=== PATIENT | male | born 1970 | race Caucasian/White ===

== ENCOUNTER 2017-03-25 10:22 | Emergency (ER) | payer MEDICAID ==
[~2017-03-25 10:22] MED LIST: ECO81 PO; GLU500 PO; MEV20 PO
[2017-03-25 11:35] LABS: BASOPHIL % 0.6 % (0-2); PLATELET COUNT 354 x10^3mcL (130-400)
[2017-03-25 11:49] LABS: CALCIUM 9.3 mg/dL (8.5-10.1); CARBON DIOXIDE 29.4 mmol/L (21-32); CHLORIDE SERUM 103 mmol/L (98-107); CREATININE SERUM 0.7 mg/dL (0.7-1.3); GFR1 > 60 mL/min; GLUCOSE SERUM 108 mg/dL (74-106); POTASSIUM SERUM 4.2 mmol/L (3.5-5.1); SODIUM SERUM 140 mmol/L (136-145)
[2017-03-25 11:54] LABS: ALBUMIN 3.7 g/dL (3.4-5.0); ALKALINE PHOSPHATASE 76 U/L (46-116); ALT/SGPT 48 U/L (16-63); AST/SGOT 25 U/L (15-37); BILIRUBIN TOTAL 0.36 mg/dL (0.20-1.00); TOTAL PROTEIN, SERUM 7.5 g/dL (6.4-8.2)
[2017-03-25 14:15] VITALS: BP 119/79
== END 2017-03-25 14:15 | disposition home or self-care (01) ==
LOC: ED 10:22
PROVIDERS: Emergency Medicine
DX: M25.511 Pain in right shoulder (principal); R07.89 Other chest pain; E11.9 Type 2 diabetes mellitus without complications; E78.00 Pure hypercholesterolemia, unspecified; Z79.84 Long term (current) use of oral hypoglycemic drugs
CPT/HCPCS: 36415

== ENCOUNTER 2017-07-08 18:45 | Emergency (ER) | payer MEDICAID ==
[~2017-07-08] VITALS: Ht 165.1 cm; Wt 78.0 kg
[2017-07-08 18:53] VITALS: Ht 165.1 cm; Wt 78.0 kg
[2017-07-08 20:11] LABS: BASOPHIL % 0.4 % (0-2); PLATELET COUNT 379 x10^3mcL (130-400)
[2017-07-08 20:23] LABS: CALCIUM 9.6 mg/dL (8.5-10.1); CARBON DIOXIDE 28.9 mmol/L (21-32); CHLORIDE SERUM 98 mmol/L (98-107); CREATININE SERUM 0.8 mg/dL (0.7-1.3); GFR1 > 60 mL/min; GLUCOSE SERUM 174 mg/dL (74-106); POTASSIUM SERUM 3.9 mmol/L (3.5-5.1); SODIUM SERUM 137 mmol/L (136-145)
[2017-07-08 22:01] VITALS: BP 125/69
== END 2017-07-08 22:00 | disposition home or self-care (01) ==
LOC: ED 18:45
PROVIDERS: Emergency Medicine Emergency Medical Services
DX: M54.5 Low back pain (principal); R10.84 Generalized abdominal pain; I10 Essential (primary) hypertension; E11.9 Type 2 diabetes mellitus without complications; E78.00 Pure hypercholesterolemia, unspecified
CPT/HCPCS: 36415; J1885